=== PATIENT | female | born 1985 | race American Indian/Alaskan Native ===

== ENCOUNTER 2016-07-18 18:11 | Emergency (ER) | payer MEDICAID ==
[2016-07-18 18:25] VITALS: BP 133/80
[2016-07-18 18:51] LABS: Hematocrit 41.9 % (30.3-42.9); Hemoglobin 13.7 gm/dl (10.1-14.3); Mean Corpuscular HGB Conc 33 % (30-34); Mean Corpuscular Hemoglobin 27 pg (28-32); Mean Corpuscular Volume 83 fl (79-97); Platelet Count 225 K/mm3 (140-440); Red Blood Count 5.03 M/mm3 (3.65-5.03); Red Cell Distribution Width 13.1 % (13.2-15.2); White Blood Count 6.1 K/mm3 (4.5-11.0)
[2016-07-18 19:04] LABS: Bacteria,Urine 3+ /HPF (Negative); Bilirubin,Urine NEG (Negative); Blood,Urine LG (Negative); Ketones,Urine NEG (Negative); Leukocyte Esterase,Urine SM (Negative); Mucus,Urine 1+ /HPF; Nitrite,Urine NEG (Negative); Protein,Urine <15 mg/dL mg/dL (Negative); Urobilinogen,Urine < 2.0 mg/dL (<2.0)
[2016-07-18 19:05] LABS: BUN/Creatinine Ratio 8.57; Blood Urea Nitrogen 6 mg/dL (7-17); Calcium 9.5 mg/dL (8.4-10.2); Carbon Dioxide 25 mmol/L (22-30); Chloride 100.3 mmol/L (98-107); Glucose 97 mg/dL (65-100); Potassium 4.5 mmol/L (3.6-5.0); Sodium 139 mmol/L (137-145)
[2016-07-18 19:05] LABS: RBC,Urine > 182.0 /HPF (0.0-6.0)
[2016-07-18 19:11] LABS: Anion Gap 18 mmol/L
--- NOTE | 2016-07-18 19:40 | Ultrasound Report ---
FINAL REPORT EXAM: US OB \T\lt; = 14 WEEKS FETUS HISTORY: with vaginal bleed . LMP 04/17/2016 corresponding to an estimated age 13 weeks 1 day and DEACON 01/22/2017 TECHNIQUE: Ultrasound of the pelvis using transabdominal imaging PRIORS: Correlation was made to transvaginal imaging obtained the same day 07/18/2016 FINDINGS: Uterus: Uterus is enlarged in size and normal and homogeneous in echogenicity without focal fibroid formation. The uterus measures 8.8 x 6.3 x 6.5 cm in size. There is a single early gestation sac noted in the cervical canal. Intrauterine gestation: There is a single gestation identified within the cervical canal. There is no evidence for a pole or yolk sac. The average gestational sac diameter measurements of 1.86 cm corresponds to estimated age 6 weeks 6 days with an EDC 03/07/2017. Ovaries: Both ovaries appear normal in size and echogenicity with normal blood flow bilaterally. The right ovary measures 3.9 x 2.5 x 2.0 cm on the left ovary measures 2.3 x 2.0 x 1.6 cm in size. Other: There is no evidence for solid adnexal mass is seen. There is no free fluid in the cul-de-sac. IMPRESSION: Single gestational sac noted in the cervical canal with no evidence for a pole or yolk sac. By gestational sac measurements, this has an an approximate age of 6 weeks 6 days. Findings are worrisome for a blighted ovum. No adnexal abnormality is present.
--- NOTE | 2016-07-18 19:41 | Ultrasound Report ---
FINAL REPORT EXAM: US OB TRANSVAGINAL HISTORY: with vaginal bleed . LMP 04/17/2016 corresponding to an estimated age 13 weeks 1 day and DEACON 01/22/2017 TECHNIQUE: Ultrasound of the pelvis using transvaginal imaging PRIORS: Correlation was made to transabdominal imaging obtained the same day 07/18/2016 FINDINGS: Uterus: Uterus is enlarged in size and normal and homogeneous in echogenicity without focal fibroid formation. The uterus measures 8.8 x 6.3 x 6.5 cm in size. There is a single early gestation sac noted in the cervical canal. No evidence for gestational sac within the uterus/endometrial canal is seen. Intrauterine gestation: There is a single gestation identified within the cervical canal. There is no evidence for a pole or yolk sac. The average gestational sac diameter measurements of 1.86 cm corresponds to estimated age 6 weeks 6 days with an EDC 03/07/2017. Ovaries: Both ovaries appear normal in size and echogenicity with normal blood flow bilaterally. The right ovary measures 3.9 x 2.5 x 2.0 cm on the left ovary measures 2.3 x 2.0 x 1.6 cm in size. Other: There is no evidence for solid adnexal mass is seen. There is no free fluid in the cul-de-sac. IMPRESSION: Single gestational sac noted in the cervical canal with no evidence for a pole or yolk sac. By gestational sac measurements, this has an an approximate age of 6 weeks 6 days. Findings are worrisome for a blighted ovum. No adnexal abnormality is present.
--- NOTE | 2016-07-19 08:03 | ED Elopement Review ---
ED Pt Elopement review - Results review Lab results: Laboratory Tests 07/18/16 07/18/16 07/18/16 18:31 18:31 18:31 WBC 6.1 RBC 5.03 Hgb 13.7 Hct 41.9 MCV 83 MCH 27 L MCHC 33 RDW 13.1 L Plt Count 225 Sodium 139 Potassium 4.5 Chloride 100.3 Carbon Dioxide 25 Anion Gap 18 BUN 6 L Creatinine 0.7 Estimated GFR > 60 BUN/Creatinine Ratio 8.57 Glucose 97 Calcium 9.5 HCG, Quant 68509 H Urine Color Urine Turbidity Urine pH Ur Specific Cobalt Urine Protein Urine Glucose (UA) Urine Ketones Urine Blood Urine Nitrite Urine Bilirubin Urine Urobilinogen Ur Leukocyte Esterase Urine WBC (Auto) Urine RBC (Auto) U Epithel Cells (Auto) Urine Bacteria (Auto) Urine Mucus Blood Type Ord Rhogam Gestat Weeks 07/18/16 07/18/16 18:31 18:46 WBC RBC Hgb Hct MCV MCH MCHC RDW Plt Count Sodium Potassium Chloride Carbon Dioxide Anion Gap BUN Creatinine Estimated GFR BUN/Creatinine Ratio Glucose Calcium HCG, Quant Urine Color Yellow Urine Turbidity Slightly-cloudy Urine pH 5.0 Ur Specific Cobalt 1.026 Urine Protein <15 mg/dl Urine Glucose (UA) Neg Urine Ketones Neg Urine Blood Lg Urine Nitrite Neg Urine Bilirubin Neg Urine Urobilinogen < 2.0 Ur Leukocyte Esterase Sm Urine WBC (Auto) 54.0 H Urine RBC (Auto) > 182.0 U Epithel Cells (Auto) 1.0 Urine Bacteria (Auto) 3+ Urine Mucus 1+ Blood Type O POSITIVE Ord Rhog Gest pos - Call Back decision Pt Call Back Decision: Call pt to return to ED DERRICK (ultrasound shows possible blighted ovum, may need methotrexate or ACTING SECTION CHIEF)
== END 2016-07-18 22:30 | disposition left against medical advice (07) ==
LOC: ED 18:11
DX: O20.9 Hemorrhage in early pregnancy, unspecified (principal); Z53.21 Procedure and treatment not carried out due to patient leaving prior to being seen by health care provider; Z3A.00 Weeks of gestation of pregnancy not specified
CPT/HCPCS: 36415; 76801; 76817; 80048; 81001; 84702; 85027; 86900; 86901

== ENCOUNTER 2017-06-05 16:10 | Outpatient (CLI) | payer MEDICAID | END 2017-06-05 17:20 | disposition home or self-care (01) | LOC: TRG 16:10 → LD 16:51 → TRG 17:20 | PROVIDERS: ATTEND Obstetrics & Gynecology | DX: O47.1 False labor at or after 37 completed weeks of gestation (principal); Z3A.39 39 weeks gestation of pregnancy ==

== ENCOUNTER 2017-06-08 21:25 | Outpatient (CLI) | payer MEDICAID ==
[2017-06-08 21:36] VITALS: BP 125/76
== END 2017-06-08 22:56 | disposition home or self-care (01) ==
LOC: TRG 21:25
PROVIDERS: ATTEND Obstetrics & Gynecology
DX: O62.9 Abnormality of forces of labor, unspecified (principal); Z3A.39 39 weeks gestation of pregnancy
CPT/HCPCS: 59025

== ENCOUNTER 2017-06-12 06:40 | Inpatient (IN) | payer MEDICAID ==
[2017-06-12] MEDS ORDERED: BRETHINE IVP PRN (09:12)
[2017-06-12] MEDS ORDERED: ePHEDrine SULFATE IV PRN ×2 (09:12→12:09)
[2017-06-12] MEDS ORDERED: SUBLIMAZE IV PRN (09:12)
[2017-06-12] MEDS ORDERED: MINERAL OIL PO PRN (09:12)
[2017-06-12] MEDS ORDERED: BRETHINE SUB-Q PRN (09:12)
--- NOTE | 2017-06-12 09:12 | History and Physical Report ---
History of Present Illness Date of examination: 06/12/17 Date of admission: 06/12/2017 Chief complaint: Having contractions History of present illness: now 40.3 weeks presents in active labor. care at [facility] since 6 weeks gestation. GBS Positive. 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 Family/Genetic History: hypertension Social history: no significant social history - Obstetrical History Expected Date of Delivery: 06/09/17 Actual Gestation: 40 Week(s) 3 Day(s) : 5 Para: 3 Hx # Term Pregnancies: 3 Spontaneous Abortions: 1 Number of Living Children: 3 Medications and Allergies Allergies Allergy/AdvReac Type Severity Reaction Status Date / Time No Known Allergies Allergy Verified 09/13/15 18:06 Home Medications Medication Instructions Recorded Confirmed Last Taken Type Pnv,Calcium 72/Iron/Folic Acid 1 tab PO DAILY 09/13/15 06/05/17 11/22/15 History [Pnv Plus Multivit Tab] Review of Systems All systems: negative - Vital Signs Vital signs: Vital Signs Pulse BP 92 H 133/65 06/12/17 07:04 06/12/17 07:04 Temp Pulse Resp BP Pulse Ox 97.6 F 91 H 117/63 06/12/17 07:10 06/12/17 08:06 06/12/17 08:06 - Physical Exam Breasts: Positive: deferred Cardiovascular: Regular rate Lungs: Positive: Clear to auscultation Abdomen: Positive: soft Genitourinary (Female): Positive: normal external genitalia Vagina: Positive: normal moisture Uterus: Positive: enlarged Anus/Rectum: Positive: normal perianal skin Extremities: Positive: normal Deep Tendon Reflex Grade: Normal +2 - Obstetrical FHR: category 1 Uterine Contraction Monitor Mode: External Cervical Dilatation: 5 Cervical Effacement Percentage: 80 station: -1 Uterine Contraction Pattern: Regular Uterine Contraction Intensity: Moderate Results All other labs normal. Assessment and Plan A: Active labor @ 40.2 P; Expect
[2017-06-12] MEDS ORDERED: PITOCin/NS 20 UNIT/1000ML DRIP 20 UNITS/1,000 ML BAG IV SCH (10:00)
[2017-06-12] MEDS ORDERED: POLYCILLIN/NS 2 GM/100 ML 2 GM/100 ML BAG IV ONE (10:00)
[2017-06-12] MEDS ORDERED: XYLOCAINE 2% INFILTRATI ONE (10:00)
[2017-06-12 10:08] LABS: Hematocrit 36.4 % (30.3-42.9); Hemoglobin 12.1 gm/dl (10.1-14.3); Mean Corpuscular HGB Conc 33 % (30-34); Mean Corpuscular Hemoglobin 26 pg (28-32); Mean Corpuscular Volume 79 fl (79-97); Platelet Count 188 K/mm3 (140-440); Red Blood Count 4.59 M/mm3 (3.65-5.03)
[2017-06-12] MEDS: LACTATED RINGERS 1,000 ML IV SCH ×2 (10:43→11:55)
[2017-06-12] MEDS: PITOCin/NS 30 UNIT/500ML 30 UNITS/500 ML BAG IV SCH ×3 (11:35→13:42)
[2017-06-12] MEDS ORDERED: fentaNYL-BUPIV 2 MCG/ML-0.125% 200 MCG/100 ML BAG EPIDURAL ONE (11:43)
[2017-06-12] MEDS ORDERED: NARCAN 2 MG/2 ML IV PRN (12:09)
--- NOTE | 2017-06-12 12:09 | Anesthesia Consultation ---
Anesthesia Consult and Med Hx Date of service: 06/12/17 - Airway Anesthetic Teeth Evaluation: Good ROM Head & Neck: Adequate Mental/Hyoid Distance: Adequate Mallampati Class: Class II Intubation Access Assessment: Good - Pulmonary Exam CTA: Yes - Cardiac Exam Cardiac Exam: No Murmur - Pre-Operative Health Status ASA Pre-Surgery Classification: ASA2 Proposed Anesthetic Plan: Epidural - Pulmonary Hx Asthma: No COPD: No Hx Pneumonia: No - Cardiovascular System Hx Hypertension: No - Central Nervous System Hx Seizures: No Hx Psychiatric Problems: No - Endocrine Hx Renal Disease: No Hx End Stage Renal Disease: No Hx Hypothyroidism: No Hx Hyperthyroidism: No - Hematic Hx Anemia: No Hx Sickle Cell Disease: No - Other Systems Hx Alcohol Use: No
[2017-06-12] MEDS ORDERED: fentaNYL-BUPIV 2 MCG/ML-0.125% 200 MCG/100 ML BAG EPIDURAL SCH (13:00)
[2017-06-12] MEDS ORDERED: POLYCILLIN/NS 1 GM/50 ML 1 GM/50 ML BAG IV SCH (14:00)
[2017-06-12] MEDS ORDERED: LANSINOH TP PRN (15:10)
[2017-06-12] MEDS ORDERED: TUCKS PAD TP PRN (15:10)
[2017-06-12] MEDS ORDERED: ZOFRAN IV PRN (15:10)
[2017-06-12] MEDS ORDERED: TYLENOL PO PRN (15:10)
[2017-06-12] MEDS ORDERED: PHENERGAN PO PRN (15:10)
[2017-06-12] MEDS ORDERED: MILK OF MAGNESIA PO PRN (15:10)
[2017-06-12] MEDS ORDERED: BENADRYL PO PRN (15:10)
[2017-06-12] MEDS ORDERED: DULCOLAX PR PRN (15:10)
--- NOTE | 2017-06-12 15:20 | Procedure Note ---
OB Delivery Note - Delivery Date of Delivery: 06/12/17 Surgeon: LEXA PARTIDA Estimated blood loss: 200cc - Vaginal Delivery presentation: vertex Delivery position: OA Intrapartum events: none Delivery induction: none Delivery augmentation: pitocin Delivery monitor: external FHT, external uterine Route of delivery: Delivery placenta: spontaneous Episiotomy: none Delivery laceration: none Anesthesia: epidural Delivery comments: of a viable female 8#10oz @1500 hrs on 06/12/2017 over intact perineum. Baby placed on mothers abdomen. Cord clamped and cut. Apgars 8/9. PLacenta delivered 3VCI. FF @ U-2, lochia small. Mother and baby doing well. - Infant A at 1 minute: 8 at 5 minutes: 9 (8# 10 oz) Infant Gender: Female
[2017-06-12] MEDS ORDERED: SODIUM CHLORIDE FLUSH SYRINGE 10 ML IV SCH (16:00)
[2017-06-12] MEDS: MOTRIN PO SCH (18:43)
[2017-06-12] MEDS: NORCO 5/325 PO PRN (18:44)
[2017-06-13 05:00] LABS: Hematocrit 36.4 % (30.3-42.9); Hemoglobin 12.1 gm/dl (10.1-14.3)
[2017-06-13] MEDS: MOTRIN PO SCH (13:00)
[2017-06-13] MEDS: NORCO 5/325 PO PRN (18:21)
--- NOTE | 2017-06-13 21:38 | Progress Note ---
Subjective Date of service: 06/13/17 Interval history: No anesthetic related complaints. Objective - Labs CBC & Chem 7: 06/13/17 04:15
[2017-06-14] MEDS: MOTRIN PO SCH (01:43)
[2017-06-14] MEDS: NORCO 5/325 PO PRN (09:49)
[2017-06-14 17:11] VITALS: BP 120/81
== END 2017-06-14 16:15 | disposition home or self-care (01) | DRG 775 ==
LOC: TRG 06:40 → LD 06:41 → TRG 06:52 → OB 18:27
PROVIDERS: ADMIT Obstetrics & Gynecology; ATTEND Obstetrics & Gynecology
PROC: 10E0XZZ Delivery of Products of Conception, External Approach (ICD-10-PCS; principal; 2017-06-12)
PROC: 3E0R3BZ Introduction of Anesthetic Agent into Spinal Canal, Percutaneous Approach (ICD-10-PCS; 2017-06-12)
PROC: 00HU33Z Insertion of Infusion Device into Spinal Canal, Percutaneous Approach (ICD-10-PCS; 2017-06-12)
DX: O99.824 Streptococcus B carrier state complicating childbirth (principal); Z3A.40 40 weeks gestation of pregnancy; Z37.0 Single live birth
CPT/HCPCS: 36415; 82962; 85014; 85018; 85027; 86850; 86900; 86901; J0290; J2590; J7120

== ENCOUNTER 2019-09-24 15:17 | Inpatient (IN) | payer MEDICAID ==
[2019-09-24] MEDS ORDERED: TERBUTALINE 1 MG/1 ML INJ SUB-Q PRN (16:36)
[2019-09-24] MEDS ORDERED: MINERAL OIL 30 ML ORAL LIQD PO PRN (16:36)
[2019-09-24] MEDS ORDERED: LIDOCAINE (2%) 20 MG/1 ML VIAL 20 ML MDV INFILTRATI ONE (16:36)
[2019-09-24] MEDS ORDERED: TERBUTALINE 1 MG/1 ML INJ IVP PRN (16:36)
[2019-09-24] MEDS ORDERED: ePHEDrine SULFATE 50 MG/1 ML INJ IV PRN (16:36)
[2019-09-24 16:42] LABS: Hematocrit 35.5 % (30.3-42.9); Hemoglobin 11.7 gm/dl (10.1-14.3); Mean Corpuscular HGB Conc 33 % (30-34); Mean Corpuscular Volume 79 fl (79-97); Platelet Count 186 K/mm3 (140-440); Red Blood Count 4.48 M/mm3 (3.65-5.03); Red Cell Distribution Width 14.5 % (13.2-15.2)
[2019-09-24] MEDS ORDERED: AMPICILLIN/NS 2 GM/100 ML 2 GM/100 ML BAG IV ONE (17:00)
[2019-09-24] MEDS ORDERED: OXYTOCIN 20 UNIT/1000ML DRIP 20 UNITS/1,000 ML BAG IV SCH ×3 (17:00→23:00)
[2019-09-24] MEDS ORDERED: OXYTOCIN DRIP 30 UNITS/500 ML BAG IV SCH (17:00)
[2019-09-24] MEDS ORDERED: FAMOTIDINE 20 MG/2 ML INJ IV ONE (17:13)
--- NOTE | 2019-09-24 17:13 | History and Physical Report ---
History of Present Illness Date of examination: 09/24/19 Date of admission: 09/24/19 15:57 Chief complaint: Leaking of water History of present illness: 33 year old presents complaining of leaking of water from vagina since 14:50 today. Denies bleeding. Reports active movement. Patient states she receives care at [facility]. No records are available. labs have been drawn upon admission. LMP: 12/21/2018. EDC: 10/03/2019. significant for the following: obesity (states she saw [facility]). labs have been drawn upon admission and ultrasound has been ordered. 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 denies: smoking, prescription drug abuse, IV drug use - Obstetrical History Expected Date of Delivery: 10/03/19 Actual Gestation: 38 Week(s) 5 Day(s) : 6 Para: 4 Hx # Term Pregnancies: 4 Number of Pregnancies: 0 Spontaneous Abortions: 1 Induced : 0 Number of Living Children: 4 Medications and Allergies Allergies Allergy/AdvReac Type Severity Reaction Status Date / Time No Known Allergies Allergy Verified 09/13/15 18:06 Home Medications Medication Instructions Recorded Confirmed Last Taken Type Pnv,Calcium 72/Iron/Folic Acid 1 tab PO DAILY 09/13/15 06/05/17 11/22/15 History [Pnv Plus Multivit Tab] Active Meds: Active Medications Ephedrine Sulfate (Ephedrine Sulfate) 10 mg IV Q2M PRN PRN Reason: Hypotension Famotidine (Pepcid) 20 mg PO BID LOUIE Oxytocin/Sodium Chloride (Pitocin/Ns 20 Unit/1000ml Drip) 20 units in 1,000 mls @ 125 mls/hr IV DIRECT LOUIE Oxytocin/Sodium Chloride (Pitocin/Ns 30 Unit/500ml) 30 units in 500 mls @ 1 mls/hr IV TITR LOUIE; Protocol Lactated Ringer's (Lactated Ringers) 1,000 mls @ 125 mls/hr IV DIRECT LOUIE Ampicillin Sodium (Ampicillin/Ns 2 Gm/100 Ml) 2 gm in 100 mls @ 100 mls/hr IV ONCE ONE; Protocol Stop: 09/24/19 17:59 Ampicillin Sodium (Ampicillin/Ns 1 Gm/50 Ml) 1 gm in 50 mls @ 100 mls/hr IV Q4HR LOUIE; Protocol Mineral Oil (Mineral Oil) 30 ml PO QHS PRN PRN Reason: Constipation Terbutaline Sulfate (Brethine) 0.25 mg SUB-Q ONCE PRN PRN Reason: Hyperstimulation/Hypertonicity Review of Systems All systems: negative (leaking of clear fluid from vagina) - Vital Signs Vital signs: Vital Signs Temp Pulse Resp BP Pulse Ox 97.7 F 100 H 22 135/75 96 09/24/19 15:32 09/24/19 15:32 09/24/19 15:32 09/24/19 15:32 09/24/19 15:32 Temp Pulse Resp BP Pulse Ox 97.7 F 102 H 22 135/75 96 09/24/19 15:32 09/24/19 15:32 09/24/19 15:32 09/24/19 15:32 09/24/19 15:32 - Physical Exam Abdomen: Positive: normal appearance, soft. Negative: distention, tenderness, guarding, rigidity Genitourinary (Female): Positive: normal external genitalia, normal perenium, perineal/vulvar lesions (2 small ulcerative lesions noted on left labia; possible herpes; culture and serology done and MD notified) Vagina: Positive: other (small amount of clear fluid, positive nitrazine, positive fern) Uterus: Positive: enlarged. Negative: tender Anus/Rectum: Positive: normal perianal skin Extremities: Positive: normal. Negative: tenderness - Obstetrical FHR: category 1 Uterine Contraction Monitor Mode: External Cervical Dilatation: 1 Cervical Effacement Percentage: 20 station: OOP Uterine Contraction Pattern: Absent Results Result Diagrams: 09/24/19 16:15 Abnormal lab results 09/24/19 Range/Units 16:15 MCH 26 L (28-32) pg All other labs normal. Assessment and Plan A: at 38 weeks, 5 days gestation. Spontaneous rupture of membranes. GBS unknown. No records available. Genital ulcerative lesion. P: Admit. US; labs. Continuous EFM. HSV culture and serology. Notified MD of genital lesion. Discussed lesion and possible etiologies with pt. Advised pt. recommendation is for section.
[2019-09-24] MEDS: LACTATED RINGERS 1,000 ML IV SCH ×2 (17:21→20:12)
--- NOTE | 2019-09-24 17:28 | Ultrasound Report ---
OB ultrasound FINDINGS: Single fetus is identified in vertex presentation. heart rate is 147 bpm. Placenta is fundal in location. Appropriate measurements reveal an MA of 38 weeks 3 days for an EDC of 10/05/2019 . This correlates with the clinical dates. No anomalies are seen. Indices are within normal limits. N o significant abnormality. Signer Name: Javier Rivas MD Signed: 09/24/2019 5:24 PM Workstation Name: [id number]
[2019-09-24 18:54] LABS: Hepatitis C Virus Antibody Non-Reactive (NonReactive)
[2019-09-24] MEDS ORDERED: METOCLOPRAMIDE 10 MG/2 ML INJ IV ONE (19:09)
[2019-09-24] MEDS ORDERED: BICITRA ORAL LIQD 30ML PO ONE (19:09)
[2019-09-24] MEDS ORDERED: LACTATED RINGERS 1,000 ML IV SCH (20:00)
[2019-09-24] MEDS ORDERED: ceFAZolin/Water 2 GM/20 ML 2 GM/20 ML SYRINGE IV NR (20:00)
--- NOTE | 2019-09-24 20:07 | Event Note ---
Date: 09/24/19 Called to see pt who is a at 38 + weeks who is s/p PROM clear around 1430 today. PT with no HSV hx but notes recently vulvar discomfort and has a couple ulcerated lesions on exam. As a result, pt consented for primary LTCS. PT also wants BTL for sterilization. PT fully consented. Risks, benefits, alternatives d/w pt including approximately 08/999 risk of BTL failure. PT understands and agrees to surgery.
[2019-09-24] MEDS ORDERED: WATER FOR IRRIG STERILE 1,500 ML BOTTLE IR ONE (20:43)
[2019-09-24] MEDS ORDERED: SODIUM CHLORIDE 0.9% IRR 1,500 ML BOTTLE IR ONE (20:43)
[2019-09-24] MEDS ORDERED: ONDANSETRON 4 MG/2 ML INJ ONE (20:45)
[2019-09-24] MEDS ORDERED: KETOROLAC 30 MG/1 ML INJ ONE (20:45)
[2019-09-24] MEDS ORDERED: DEXMEDETOMIDINE 200 MCG/2 ML VIAL IV ONE (20:45)
[2019-09-24] MEDS ORDERED: AMPICILLIN/NS 1 GM/50 ML 1 GM/50 ML BAG IV SCH (21:00)
[2019-09-24] MEDS ORDERED: OXYTOCIN 10 UNIT/1 ML INJ ONE (21:12)
[2019-09-24] MEDS ORDERED: FAMOTIDINE 20 MG TAB PO SCH (22:00)
[2019-09-24] MEDS ORDERED: NALOXONE 0.4 MG/1 ML INJ IV PRN (22:01)
[2019-09-24] MEDS ORDERED: WITCH HAZEL/ GLYCERIN PAD TP PRN (22:01)
[2019-09-24] MEDS ORDERED: KETOROLAC 30 MG/1 ML INJ IV PRN (22:01)
[2019-09-24] MEDS ORDERED: LANOLIN/ZINC/DIMETHICONE (LANSINOH) 7 GM TP PRN (22:01)
[2019-09-24] MEDS ORDERED: SENNOSIDES 8.6 MG TAB PO PRN (22:03)
[2019-09-24] MEDS ORDERED: ONDANSETRON 4 MG/2 ML INJ IV PRN (22:03)
[2019-09-24] MEDS ORDERED: MAGNESIUM HYDROXIDE (MOM) ORAL LIQD UDC PO PRN (22:03)
[2019-09-24] MEDS ORDERED: SIMETHICONE 80 MG CHEW TAB PO PRN (22:03)
--- NOTE | 2019-09-24 22:09 | Anesthesia Consultation ---
Anesthesia Consult and Med Hx Date of service: 09/24/19 - Airway Anesthetic Teeth Evaluation: Good ROM Head & Neck: Adequate Mental/Hyoid Distance: Adequate Mallampati Class: Class III Intubation Access Assessment: Probably Good - Pulmonary Exam CTA: Yes - Cardiac Exam Cardiac Exam: RRR - Pre-Operative Health Status ASA Pre-Surgery Classification: ASA3 Proposed Anesthetic Plan: Epidural - Pulmonary Hx Smoking: No Hx Asthma: No Hx Respiratory Symptoms: No SOB: No COPD: No Home Oxygen Therapy: No Hx Pneumonia: No Hx Sleep Apnea: No - Cardiovascular System Hx Hypertension: No Hx Coronary Artery Disease: No Hx Heart Attack/AMI: No Hx Angina: No Hx Percutaneous Transluminal Coronary Angioplasty (PTCA): No Hx Cardia Arrhythmia: No Hx Pacemaker: No Hx Internal Defibrillator: No Hx Valvular Heart Disease: No Hx Heart Murmur: No Hx Peripheral Vascular Disease: No - Central Nervous System Hx Neuromuscular Disorder: No Hx Seizures: No CVA: No Hx Back Pain: Yes Hx Psychiatric Problems: No - Gastrointestinal Hx Ulcer: No Hx Gastroesophageal Reflux Disease: Yes - Endocrine Hx Renal Disease: No Hx End Stage Renal Disease: No Hx Cirrhosis: No Hx Liver Disease: No Hx Insulin Dependent Diabetes: No Hx Non-Insulin Dependent Diabetes: No Hx Thyroid Disease: No Hx Hypothyroidism: No Hx Hyperthyroidism: No - Hematic Hx Anemia: No Hx Sickle Cell Disease: No - Other Systems Hx Alcohol Use: No Hx Substance Use: No Hx Cancer: No Hx Obesity: Yes
--- NOTE | 2019-09-24 22:10 | Post Anesthesia Evaluation ---
- Post Anesthesia Evaluation Patient Participated: Yes Airway Patent: Yes Stable Respiratory Function: Yes Nausea/Vomiting: No Temp > 96.8F: Yes Pain Manageable: Yes Adequeate Hydration: Yes Anesthesia Complications: No Block Receding Appropriately: Yes Patient on Ventilator: No
--- NOTE | 2019-09-24 22:10 | Anesthesia Day of Surgery ---
Anesthesia Day of Surgery - Day of Surgery Patient Examined: Yes Patient H&P Reviewed: Yes Patient is NPO: Yes Beta Blockers: No Cardiac Clearance: No Pulmonary Clearance: No Lopez's Test: N/A
--- NOTE | 2019-09-24 22:12 | Procedure Note ---
OB Delivery Note - Delivery Date of Delivery: 09/24/19 Surgeon: INGRIS DUDLEY Estimated blood loss: other (800 cc) - Section Preop diagnosis: desires sterilization, other (suspect HSV lesion, PROM) Postop diagnosis: same section procedure: primary low transverse, bilateral tubal ligation Disposition: PACU Complications: none Narrative: Indication: 33-year-old is at 38 weeks and 5 days today. She presented status post premature rupture membranes this afternoon. She did not present to the hospital until this evening though. Patient also on exam was found to have a couple ulcerated lesions suspicious for possible herpes simplex. As result patient taken for primary low transverse . Patient also desires a tubal ligation for sterilization. Findings: Normal uterus, tubes and ovaries. Clear fluid. Loose nuchal cord x 1. Procedure: Patient taken to the operating room and prepped and draped in the usual fashion. Pfannenstiel skin incision was made and carried down to the underlying fascia. Fascia was incised and the incision was extended bilat erally. Rectus fascia dissected off the rectus muscle both superiorly and inferiorly. Peritoneum identified tented up and entered. Peritoneal incision extended superiorly and inferiorly with good visualization of the bladder. Bladder blade was placed. Uterine incision was made and the incision was extended bilaterally. The baby was delivered from in the typical vertex fashion. Baby bulb suctioned at the incision site and again after delivery. Cord was delayed clamped and cut and handed off to waiting team. The placenta was delivered spontaneously. The uterus was exteriorized and cleared of all clots and debris. Uterine incision closed with 0 Vicryl in a running locked fashion followed by a second imbricating layer of 0 Vicryl. Good hemostasis was noted. Her urine was clear. Attention was turned to the tubal ligation. Both tubes were ligated using 0 chromic x2 on each side. This was done successfully and without difficulty on both sides with good hemostasis noted afterwards, even after the uterus, tubes and ovaries were back in the abdominal cavity. The segments of tubes on each side were sent to pathology. Uterus tubes and ovaries return to the abdominal cavity. Gutters were cleared of all clots and debris and the pelvis was well irrigated. Good hemostasis noted. Interceed placed over the uterine incision and over the lower uterine segment in the midline. Attention was turned to the rectus fascia which was reapproximated with 0 Vicryl in a running fashion. Subcutaneous tissues was irrigated and reapproximated with 2-0 Vicryl in a running fashion. Skin was closed with 4-0 Vicryl in a subcuticular fashion followed by Dermabond. The procedure was concluded at this point and the patient tolerated the procedure well. All instrument and lap counts were correct. - Infant A at 1 minute: 8 at 5 minutes: 9 Infant Gender: Male
[2019-09-25] MEDS: oxyCODONE /ACETAMINOPHEN 5-325MG TAB PO PRN ×4 (04:19→23:56)
[2019-09-25] MEDS ORDERED: IBUPROFEN 800 MG TAB ONE (08:24)
[2019-09-25 10:38] LABS: Hematocrit 32.3 % (30.3-42.9); Hemoglobin 10.5 gm/dl (10.1-14.3)
[2019-09-25] MEDS: IBUPROFEN 800 MG TAB PO PRN (19:51)
--- NOTE | 2019-09-26 04:29 | Progress Note ---
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, Event Note and OB Delivery Procedure Note Patient reports: appetite normal, voiding normally, pain well controlled, flatus, ambulating normally, no dizzy ambulation, no bowel movement : doing well Objective - Vital Signs Latest vital signs: Vital Signs Temp Pulse Resp BP BP Pulse Ox 09/26/19 00:00 98.6 F 70 18 102/73 09/25/19 23:56 20 09/25/19 19:51 20 09/25/19 19:30 98.6 F 71 16 113/68 09/25/19 16:22 98.0 F 96 H 18 108/69 96 09/25/19 12:01 98.4 F 88 20 106/53 98 09/25/19 08:04 97.8 F 86 20 114/70 99 09/25/19 05:24 97.8 F 90 20 124/82 99 Intake and Output 09/25/19 09/25/19 09/26/19 15:59 23:59 07:59 Intake Total 300 Output Total 600 500 Balance -600 -200 Intake: Intake, Free Water 300 Output: Urine 600 500 Indwelling Catheter 600 Void 500 Other: Total, Output Amount 600 500 # Voids Indwelling Catheter 4 Void 1 1 - Exam Uterus: Present: normal, firm, fundal height below umbilicus Extremities: Present: normal Incision: Present: normal, dry, intact Comments: scant lochia
[2019-09-26] MEDS: IBUPROFEN 800 MG TAB PO PRN (05:57)
[2019-09-26] MEDS ORDERED: FERROUS SULFATE 325 MG TAB PO SCH (10:00)
--- NOTE | 2019-09-26 10:13 | Discharge Summary ---
Providers - Providers Date of Admission: 09/24/19 15:57 Date of discharge: 09/26/19 (1500) Attending physician: INGRIS DUDLEY Primary care physician: INGRIS DUDLEY Hospitalization Reason for admission: active labor Delivery: Procedure: primary low transverse (secondary to active HSV lesion) Episiotomy: none Laceration: none Incision: dry, intact (no signs of infection noted) Other procedures: tubal ligation complications: other (anemia) Discharge diagnosis: IUP at term delivered, other (anemia) Antoine baby: male Hospital course: See admission H & P; OB operative summary and PP progress notes Condition at discharge: Stable Disposition: DC-[id number] TO HOME OR SELFCARE - Discharge Diagnoses (1) S/P primary low transverse Status: Acute (2) S/P tubal ligation Status: Acute (3) Vaginal lesion Status: Acute (4) Obesity (BMI 30-39.9) Status: Acute Plan - Discharge Medications Prescriptions: Ferrous Sulfate [Feosol 325 MG tab] 325 mg PO QDAY 30 Days #30 tablet Ibuprofen [Motrin 800 MG tab] 800 mg PO Q6HR PRN #30 tablet PRN Reason: Pain , Severe (7-10) oxyCODONE /ACETAMINOPHEN [Percocet 5/325] 1 tab PO Q4HR #30 tab - Provider Discharge Summary Activity: routine, no sex for 6 weeks, no heavy lifting 4 weeks, no strenuous exercise Diet: other (Iron rich diet) Instructions: routine Additional instructions: [] Smoking cessation referral if applicable(refer to patient education folder for contact #) [] Refer to [facility]'s [facility] Booklet Call your doctor immediately for: * Fever > 100.5 * Heavy vaginal bleeding ( >1 pad per hour) * Severe persistent headache * Shortness of breath * Reddened, hot, painful area to leg or breast * Drainage or odor from incision. * Keep incision clean and dry at all times and follow doctor's instructions regarding bathing/showering - Follow up plan Follow up: INGRIS DUDLEY MD [Primary Care Provider] - 7 Days
[2019-09-26] MEDS: oxyCODONE /ACETAMINOPHEN 5-325MG TAB PO PRN (12:13)
[2019-09-26 13:36] VITALS: BP 118/66
== END 2019-09-26 13:43 | disposition home or self-care (01) | DRG 766 ==
LOC: TRG 15:17 → LD 15:57 → OB 09-25 00:43
PROVIDERS: ADMIT Obstetrics & Gynecology; ATTEND Obstetrics & Gynecology
PROC: 10D00Z1 Extraction of Products of Conception, Low, Open Approach (ICD-10-PCS; principal; 2019-09-24)
PROC: 0UB70ZZ Excision of Bilateral Fallopian Tubes, Open Approach (ICD-10-PCS; 2019-09-24)
PROC: 3E0R3BZ Introduction of Anesthetic Agent into Spinal Canal, Percutaneous Approach (ICD-10-PCS; 2019-09-24)
PROC: 00HU33Z Insertion of Infusion Device into Spinal Canal, Percutaneous Approach (ICD-10-PCS; 2019-09-24)
DX: O75.89 Other specified complications of labor and delivery (principal); O99.214 Obesity complicating childbirth; N89.8 Other specified noninflammatory disorders of vagina; O99.62 Diseases of the digestive system complicating childbirth; K21.9 Gastro-esophageal reflux disease without esophagitis; O42.92 Full-term premature rupture of membranes, unspecified as to length of time between rupture and onset of labor; O99.824 Streptococcus B carrier state complicating childbirth; O99.02 Anemia complicating childbirth; Z3A.38 38 weeks gestation of pregnancy; Z37.0 Single live birth; Z82.49 Family history of ischemic heart disease and other diseases of the circulatory system; Z30.2 Encounter for sterilization
CPT/HCPCS: 36415; 59025; 76815; 76816; 83036; 85014; 85018; 85027; 86592; 86706; 86762; 86803; 86850; 86900; 86901; 87529; 87806; 88302; G0378; C1765; J0290; J0690; J1885; J2405; J2590; J2765; J3490; J7120